=== PATIENT | female | born 1975 | race Caucasian/White ===

== ENCOUNTER 2016-05-04 18:12 | Observation (INO) ==
--- NOTE | 2016-05-04 19:49 | Emergency Department Note ---
Disposition Clinical Impression: Weakness, UTI (urinary tract infection), Multiple sclerosis exacerbation, Anemia Disposition: Admitted As Inpatient Condition: Good General Adult HPI - General Chief complaint: ED Urogenital-Female Stated complaint: UTI Time Seen by Provider: 05/04/16 19:47 Source: patient, family Limitations: physical limitation - History of Present Illness HPI Narrative: 40-year-old female with history of multiple sclerosis and chronic weakness with lower and upper extremity spasms on a baclofen pump reportsto the emergency department with concerns for UTI. The patient has to self catheterize. Her urine has been strong smelling. Per her , the patient gets generally weaker and has increasing spasms when she has a UTI. They report she is usually able to transfer from the bed to wheelchair but she is unable to do so now secondary to generalized weakness. There is no history of chest pain shortness of breath or cough. No leg swelling or pain no coughing of blood falls or injuries. No abdominal pain vomiting or diarrhea. There is no history of fever or flank pain. There is no history of confusion or dysarthria. The patient usually has reddened legs and this is unchanged. No unilateral leg swelling has been noted. The patient and family report she is so weak she will likely have to go to a skilled nursing for recovery. They do not think they can handle her at home based on her immobility and the patient's 's work and school schedule. Pain Scale: 0 - Related Data Home Medications Medication Instructions Recorded Confirmed BuPROPion [Wellbutrin] 75 mg PO DAILY 10/08/15 05/04/16 Dimethyl Fumarate [Tecfidera] 240 mg PO BID 10/08/15 05/04/16 Ibuprofen [Motrin] 800 mg PO Q8HR PRN 10/08/15 05/04/16 Sennosides [Senna] 17.2 mg PO DAILY PRN 10/08/15 05/04/16 Venlafaxine HCl [Effexor Xr] 225 mg PO DAILY 10/08/15 05/04/16 Cetirizine HCl [Zyrtec] 10 mg PO DAILY 10/10/15 05/04/16 Baclofen 05/04/16 05/04/16 Bethanechol Chloride [Urecholine] 25 mg PO TID 05/04/16 05/04/16 BuPROPion SR (12 HR) [Wellbutrin 100 mg PO BID 05/04/16 05/04/16 SR] Cranberry Conc/Ascorbic Acid 1 each PO DAILY 05/04/16 05/04/16 [Cranberry Concentrate Softgel] Docusate [Colace] 100 mg PO BID 05/04/16 05/04/16 Ergocalciferol (VITAMIN D2) 50,000 unit PO QWEEK 05/04/16 05/04/16 [Vitamin D2] Lactobacillus Acidophilus 1 mg PO DAILY 05/04/16 05/04/16 [Acidophilus Probiotic] Methenamine Hippurate 1 gm PO BIDWM 05/04/16 05/04/16 Oxymetazoline HCl [Afrin] 1 spray NS Q12H PRN 05/04/16 05/04/16 Pregabalin [Lyrica] 100 mg PO BID 05/04/16 05/04/16 Saline Nasal [place] [[place] Nasal 1 spray NS Q4H PRN 05/04/16 05/04/16 [place]] Tamsulosin [Flomax] 0.4 mg PO DAILY 05/04/16 05/04/16 Allergies Allergy/AdvReac Type Severity Reaction Status Date / Time Penicillins Allergy Hives Verified 05/04/16 18:20 Sulfa (Sulfonamide Allergy Hives Verified 05/04/16 18:20 Antibiotics) All systems ED: reviewed and negative except as stated. Past Medical History - Past Medical History Medical history: Reports: other (Multiple sclerosis with chronic debility on a baclofen pump, recurrent UTI) Surgical history: Reports: non-contributory Psychiatric history: Reports: no psych history - Social History Smoking Status: Current some day smoker Alcohol use: Reports: rarely Drug use: Reports: none Physical Exam - General Limitations: physical limitation General appearance: alert, in no apparent distress - Head Head exam: atraumatic, normocephalic, normal inspection - Eye Eye exam: Present: normal appearance, PERRL, EOMI - ENT ENT exam: normal exam, normal oropharynx, mucous membranes moist, TM's normal bilaterally, normal external ear exam - Neck Neck exam: Present: normal inspection, full ROM, trachea midline - Chest Chest inspection: Present: symmetric chest wall rise. Absent: tenderness - Respiratory Respiratory exam: Present: normal lung sounds bilaterally. Absent: respiratory distress - Cardiovascular Cardiovascular exam: Present: normal rhythm, tachycardia - Abdominal Exam Abdominal exam: Present: soft, Non-Tender, normal bowel sounds. Absent: tenderness, distention, guarding, rebound, rigidity, pulsatile mass - Extremities Exam Extremities exam: Present: normal inspection, full ROM, normal capillary refill , pedal edema, other (Mild erythema of the legs). Absent: tenderness, joint swelling, calf tenderness - Expanded Lower Extremity Exam Neurovascular/Tendon exam: Absent: motor deficit, sensory deficit, tendon deficit, extremity cold to touch, pallor - Back Exam Back exam: Absent: tenderness, CVA tenderness (R), CVA tenderness (L) - Neurological Exam Neurological exam: Present: alert, oriented X3, CN II-XII intact, motor sensory deficit (Bilateral ower extremity weakness with spasm, left upper extremity spasm, general good muscle strength in the upper extremities, spasm left upper extremity appreciated.) - Psychiatric Psychiatric exam: Present: normal affect, normal mood - Skin Skin exam: Present: warm, dry, intact, normal color. Absent: cyanosis, diaphoresis, pallor, mottled Course Vital Signs Temperature 97.4 F L 05/04/16 18:20 Pulse Rate 120 05/04/16 18:20 Respiratory Rate 16 05/04/16 18:20 Blood Pressure 107/66 05/04/16 18:20 O2 Sat by Pulse Oximetry 100 05/04/16 18:20 Temperature 97.4 F L 05/04/16 22:07 Pulse Rate 115 05/04/16 22:07 Respiratory Rate 16 05/04/16 22:07 Blood Pressure 105/61 05/04/16 22:07 O2 Sat by Pulse Oximetry 97 05/04/16 22:07 Oxygen Delivery Oxygen Delivery Room Air Medical Decision Making - [facility] Narrative Medical decision making narrative: The patient is tachycardic and has a UTI, IV fluid and Rocephin were given. Laboratory studies were ordered reveals a negative lactate, negative white count or shift, negative chem basic and liver function tests. The patient does demonstrate an element of anemia. The patient is usually able to transfer from a bed to too weak to transfer. The patient's reports that when she has urinary tract infections her neurologic status and general strength diminished. He reports he has seen her in the same condition and that she has previously had to be admitted to a skilled nursing for medical recovery. The patient and family members concur she is too weak to be cared for at home. Based on a modified Sirs/sepsis score the patient may meet criteria for sepsis, The patient has tachycardia, an element of hypotension, and a clear source for infection with apparent systemic effects. In the ED the patient became somewhat tired and sleepy, however she remained easily arousable, I do n suspect acute intracranial pathology. Her tachycardia did resolve significantly with 1 L of IV fluid and her heart rate went down to the 70's. Based on the patient's weakness and associated urinary tract infection, I thought it would be appropriate to admit the patient to the hospital. The patient will likely require nursing placement at least in the short-term. I reviewed the case with the hospitalist ZAKIYA as well as Dr. Resendiz. They have accepted the patient to their care. Further evaluation and managementregarding the patient's acute weakness as per the admitting team. - Lab Data Lab results reviewed: Yes I reviewed the patient's lab results. Result diagrams: 05/04/16 20:53 05/04/16 20:53 Lab Results 05/04/16 05/04/16 05/04/16 Range/Units 20:19 20:19 20:53 WBC 7.7 (4.3-11.1) K/mcL RBC 3.84 (3.82-4.97) M/mcL Hgb 10.8 L (11.5-15.4) g/dL Hct 34.1 L (35.3-44.9) % MCV 88.8 (83.0-100.0) fL MCH 28.1 (28.0-33.3) pg MCHC 31.7 (31.6-35.5) g/dL RDW 15.3 H (11.5-14.5) % Plt Count 235 (140-400) K/mcL MPV 10.8 (9.4-12.4) fL Immature Gran % 0.5 (0-4) % Seg Neutrophils % 69.3 % Lymphocytes % 19.4 % Monocytes % 7.4 % Eosinophils % 3.0 % Basophils % 0.4 % Neutrophils # 5.3 (1.6-8.9) K/mcL Lymphocytes # 1.5 (0.6-4.6) K/mcL Monocytes # 0.6 (0.0-1.3) K/mcL Eosinophils # 0.2 (0.0-0.6) K/mcL Basophils # 0.0 (0.0-0.2) K/mcL Sodium (136-145) mEq/L Potassium (3.5-4.5) mEq/L Chloride (98-109) mEq/L Carbon Dioxide (19-29) mEq/L BUN (7-20) mg/dL Creatinine (0.57-1.11) mg/dL Est GFR ( Amer) (> 60) Est GFR (Non-Af Amer) (> 60) BUN/Creatinine Ratio (6-26) Glucose (70-99) mg/dL Calculated Osmolality (280-300) Lactic Acid (0.5-2.2) mmol/L Calcium (8.6-10.8) mg/dL Total Bilirubin (0.2-1.2) mg/dL Direct Bilirubin (0.0-0.5) mg/dL Indirect Bilirubin (0.0-1.2) mg/dL AST (5-34) Units/L ALT (0-55) Units/L Alkaline Phosphatase (38-126) Units/L C-Reactive Protein (Less than 5) mg/L Serum Total Protein (6.0-8.3) g/dL Albumin (3.5-5.0) g/dL Globulin (2.4-3.5) g/dL Albumin/Globulin Ratio (1.1-2.2) Urine Color Yellow (Yellow) Urine Clarity Turbid A (Clear) Urine pH 6.5 (5.0-8.0) pH Units Ur Specific [place] 1.021 (1.010-1.025) Urine Protein 30 H (Neg-Trace) mg/dL Urine Glucose (UA) Normal (Normal) mg/dL Urine Ketones 15 H (Negative) mg/dL Urine Blood Moderate H (Negative) Urine Nitrite Negative (Negative) Urine Bilirubin Negative (Negative) Urine Urobilinogen Normal (Normal) mg/dL Ur Leukocyte Esterase Large H (Negative) Urine Microscopic RBC TNTC H (0-3) per hpf Urine Microscopic WBC TNTC H (0-3) per hpf Ur Squamous Epith Cells Many H (None-Few) per lpf Urine Bacteria Many H (None-Few) per hpf Hyaline Casts Moderate H (None-Few) per lpf Ur Culture Indicated? YES A (NO) Urine Test Negative (Negative) 05/04/16 05/04/16 05/04/16 Range/Units 20:53 20:53 20:53 WBC (4.3-11.1) K/mcL RBC (3.82-4.97) M/mcL Hgb (11.5-15.4) g/dL Hct (35.3-44.9) % MCV (83.0-100.0) fL MCH (28.0-33.3) pg MCHC (31.6-35.5) g/dL RDW (11.5-14.5) % Plt Count (140-400) K/mcL MPV (9.4-12.4) fL Immature Gran % (0-4) % Seg Neutrophils % % Lymphocytes % % Monocytes % % Eosinophils % % Basophils % % Neutrophils # (1.6-8.9) K/mcL Lymphocytes # (0.6-4.6) K/mcL Monocytes # (0.0-1.3) K/mcL Eosinophils # (0.0-0.6) K/mcL Basophils # (0.0-0.2) K/mcL Sodium 139 (136-145) mEq/L Potassium 3.5 (3.5-4.5) mEq/L Chloride 102 (98-109) mEq/L Carbon Dioxide 27 (19-29) mEq/L BUN 11 (7-20) mg/dL Creatinine 0.59 (0.57-1.11) mg/dL Est GFR ( Amer) > 60 (> 60) Est GFR (Non-Af Amer) > 60 (> 60) BUN/Creatinine Ratio 19 (6-26) Glucose 95 (70-99) mg/dL Calculated Osmolality 287 (280-300) Lactic Acid 0.6 (0.5-2.2) mmol/L Calcium 8.9 (8.6-10.8) mg/dL Total Bilirubin 0.3 (0.2-1.2) mg/dL Direct Bilirubin 0.1 (0.0-0.5) mg/dL Indirect Bilirubin 0.2 (0.0-1.2) mg/dL AST 18 (5-34) Units/L ALT 16 (0-55) Units/L Alkaline Phosphatase 66 (38-126) Units/L C-Reactive Protein 0 (Less than 5) mg/L Serum Total Protein 6.7 (6.0-8.3) g/dL Albumin 3.5 (3.5-5.0) g/dL Globulin 3.2 (2.4-3.5) g/dL Albumin/Globulin Ratio 1.1 (1.1-2.2) Urine Color (Yellow) Urine Clarity (Clear) Urine pH (5.0-8.0) pH Units Ur Specific [place] (1.010-1.025) Urine Protein (Neg-Trace) mg/dL Urine Glucose (UA) (Normal) mg/dL Urine Ketones (Negative) mg/dL Urine Blood (Negative) Urine Nitrite (Negative) Urine Bilirubin (Negative) Urine Urobilinogen (Normal) mg/dL Ur Leukocyte Esterase (Negative) Urine Microscopic RBC (0-3) per hpf Urine Microscopic WBC (0-3) per hpf Ur Squamous Epith Cells (None-Few) per lpf Urine Bacteria (None-Few) per hpf Hyaline Casts (None-Few) per lpf Ur Culture Indicated? (NO) Urine Test (Negative)
[2016-05-04 20:28] LABS: Bilirubin,Urine Negative (Negative); Blood,Urine Moderate (Negative); Clarity,Urine Turbid (Clear); Color,Urine Yellow (Yellow); Glucose,Urine (UA) Normal (Normal); Ketones,Urine 15 mg/dL (Negative); Leukocyte Esterase,Urine Large (Negative); Nitrite,Urine Negative (Negative); PH,Urine 6.5 pH Units (5.0-8.0); Protein,Urine 30 mg/dL (Neg-Trace); Specific Gravity,Urine 1.021 (1.010-1.025); Urobilinogen,Urine Normal (Normal)
[2016-05-04 20:31] LABS: Bacteria,Urine Many per hpf (None-Few); Hyaline Casts,Urine Moderate per lpf (None-Few); RBC,Urine TNTC per hpf (0-3); Squamous Epithelial Cell,Urine Many per lpf (None-Few); WBC,Urine TNTC per hpf (0-3)
[2016-05-04] MEDS ORDERED: 0.9 % Sodium Chloride 1,000 ML IVC ONE (20:37)
[2016-05-04 21:08] LABS: Basophils % 0.4 %; Eosinophils # 0.2 K/mcL (0.0-0.6); Hematocrit 34.1 % (35.3-44.9); Hemoglobin 10.8 g/dL (11.5-15.4); Immature Granulocytes % 0.5 % (0-4); Lymphocytes # 1.5 K/mcL (0.6-4.6); Lymphocytes % 19.4 %; Mean Corpuscular HGB Conc 31.7 g/dL (31.6-35.5); Mean Corpuscular Hemoglobin 28.1 pg (28.0-33.3); Mean Corpuscular Volume 88.8 fL (83.0-100.0); Mean Platelet Volume 10.8 fL (9.4-12.4); Monocytes # 0.6 K/mcL (0.0-1.3); Monocytes % 7.4 %; Neutrophils # 5.3 K/mcL (1.6-8.9); Platelet Count 235 K/mcL (140-400); Red Blood Count 3.84 M/mcL (3.82-4.97); Red Cell Distribution Width 15.3 % (11.5-14.5); Segmented Neutrophils % 69.3 %
[2016-05-04 21:22] LABS: Alanine Aminotransferase 16 Units/L (0-55); Albumin 3.5 g/dL (3.5-5.0); Albumin/Globulin Ratio 1.1 (1.1-2.2); Alkaline Phosphatase 66 Units/L (38-126); Aspartate Amino Transferase 18 Units/L (5-34); BUN/Creatinine Ratio 19 (6-26); Bilirubin,Direct 0.1 mg/dL (0.0-0.5); Bilirubin,Indirect 0.2 mg/dL (0.0-1.2); Bilirubin,Total 0.3 mg/dL (0.2-1.2); Blood Urea Nitrogen 11 mg/dL (7-20); Calcium 8.9 mg/dL (8.6-10.8); Carbon Dioxide 27 mEq/L (19-29); Chloride 102 mEq/L (98-109); Globulin 3.2 g/dL (2.4-3.5); Glucose 95 mg/dL (70-99); Osmolality,Calculated 287 (280-300); Potassium 3.5 mEq/L (3.5-4.5); Sodium 139 mEq/L (136-145); Total Protein 6.7 g/dL (6.0-8.3); eGFR For African Americans > 60 (> 60); eGFR For Non-African Americans > 60 (> 60)
[2016-05-05] MEDS ORDERED: Naloxone 0.4 MG/ML INJ IVP PRN (03:27)
[2016-05-05] MEDS ORDERED: Oxymetazoline Nasal SPRAY BOTTLE NS PRN (03:31)
--- NOTE | 2016-05-05 03:38 | Internal Med History&Physical ---
Date of Encounter: 05/05/16 Time of Encounter: 03:00 Assessment and Plan (1) UTI (urinary tract infection) Current visit: Yes Status: Acute Pt has neurogenic bladder and uses intermittent self-catheterization. Urinalysis is abnormal. Urine cultures pending. Empirically treat with ceftriaxone. (2) Multiple sclerosis exacerbation Current visit: Yes Status: Acute Possibly related to UTI. Will consider Neurology consult for further advice. PT / social service consult (3) Back muscle spasm Current visit: Yes Status: Acute Continue with baclofen pump (4) Vaginal candidiasis Current visit: Yes Status: Acute Treat with fluconazole (5) DVT prophylaxis Current visit: Yes Status: Acute subcutaneous heparin Internal Medicine - H&P: HPI Chief complaint: spasms, generalized weakness Plans for Post Hospital Care: Transfer Nursing Home Facility History of present illness: Ms. Suresh is a 40 year old female with history of multiple sclerosis and chronic weakness of lower extremities and spasms on a baclofen pump. Pt needs intermittent catheterization, by her . Pt is somnolent and is not able to give significant details. Her is not at the bedside. Per the ER notes , her reported that the patient gets generally weaker and has increasing spasms when she has a UTI. At baseline, she can usually be able to transfer from the bed to wheelchair but she is unable to do so now, secondary to generalized weakness. Her urine has strong smell. She reports that her legs are weaker for the last week. She also reports left wrist drop since yesterday. She denies abdominal pain, fever, chills, nausea, vomiting, shortness of breath. Urinalysis in the emergency department was abnormal with leukocyte esterase and TNTC WBC. She was given ceftriaxone and is admitted to the hospitalist service for further management. Recent urine culture from November 2015 showed Escherichia coli, which was resistant to ciprofloxacin. Past Med Surg Social Fam HX - Past Medical History Medical history: other (Multiple sclerosis with chronic debility on a baclofen pump, recurrent UTI) Psychiatric history: no psych history - Past Surgical History Surgical History: non-contributory - Social History Smoking Status: Current some day smoker Alcohol use: rarely Drug use: none - Family History Mother Adopted: No Internal Medicine - H&P: Meds BuPROPion [Wellbutrin] 75 mg PO DAILY 10/08/15 [History] Dimethyl Fumarate [Tecfidera] 240 mg PO BID 10/08/15 [History] Ibuprofen [Motrin] 800 mg PO Q8HR PRN 10/08/15 [History] Sennosides [Senna] 17.2 mg PO DAILY PRN 10/08/15 [History] Venlafaxine HCl [Effexor Xr] 225 mg PO DAILY 10/08/15 [History] Cetirizine HCl [Zyrtec] 10 mg PO DAILY 10/10/15 [History] Baclofen 05/04/16 [History] Bethanechol Chloride [Urecholine] 25 mg PO TID 05/04/16 [History] BuPROPion SR (12 HR) [Wellbutrin SR] 100 mg PO BID 05/04/16 [History] Cranberry Conc/Ascorbic Acid [Cranberry Concentrate Softgel] 1 each PO DAILY [History] Docusate [Colace] 100 mg PO BID 05/04/16 [History] Ergocalciferol (VITAMIN D2) [Vitamin D2] 50,000 unit PO QWEEK 05/04/16 [History] Lactobacillus Acidophilus [Acidophilus Probiotic] 1 mg PO DAILY 05/04/16 [ History] Methenamine Hippurate 1 gm PO BIDWM 05/04/16 [History] Oxymetazoline HCl [Afrin] 1 spray NS Q12H PRN 05/04/16 [History] Pregabalin [Lyrica] 100 mg PO BID 05/04/16 [History] Saline Nasal [place] [[place] Nasal [place]] 1 spray NS Q4H PRN 05/04/16 [History] Tamsulosin [Flomax] 0.4 mg PO DAILY 05/04/16 [History] Allergies Penicillins Allergy (Verified 05/04/16 18:20) Hives Sulfa (Sulfonamide Antibiotics) Allergy (Verified 05/04/16 18:20) Hives All Systems PM: A 10-system review of systems was performed and is negative for pertinent findings except as documented above in the HPI. - Constitutional Vitals: Temp Pulse Resp BP Pulse Ox 97.4 F L 115 16 105/61 97 05/04/16 22:07 05/04/16 22:07 05/04/16 22:07 05/04/16 22:07 05/04/16 22:07 Exam: General: Not in acute distress at the time of my evaluation. Somnulent. HEENT: Oral mucosa is moist. No conjunctival palor or scleral icterus. Right sided ptosis Neck: No obvious neck swellings Lungs: Clear to auscultation Cardiac: Regular rate and rhythm. No significant murmurs Abdomen: Soft, non tender. Bowel sounds present Neurological: Somnulent, arousable. She is able to wiggle the toes but not able to move the lower extremities against gravity. Left wrist drop present. Psych: Not aggressive or agitated Extremities: B/L leg edema, right more than the left; there is erythema of the lower legs, but not suggestive of cellulitis. Skin: No generalized rash Internal Med - H&P Results - Labs CBC & Chem 7: 05/04/16 20:53 05/04/16 20:53
[2016-05-05] MEDS ORDERED: Fluconazole 100 MG TABLET PO ONE ×2 (03:51→04:45)
[2016-05-05] MEDS: BuPROPion SR (12 HR) 100 MG TABLET PO SCH ×2 (09:53→20:39)
[2016-05-05] MEDS: Venlafaxine XR (24 HR) 75 MG CAP.ER.24H PO SCH (09:54)
[2016-05-05] MEDS: Lactobacillus 1 EACH CAP.SPRINK PO SCH ×2 (09:54→20:40)
[2016-05-05] MEDS: *HR* Heparin 5,000 UNIT/ML VIAL SQ SCH ×3 (09:55→22:55)
--- NOTE | 2016-05-05 10:40 | Neurology - Consult Note ---
<Ezra Calabrese - Last Filed: 05/05/16 13:53> Date of Encounter: 05/05/16 Time of Encounter: 10:37 Assessment and Plan (1) Weakness Current Visit: Yes Status: Acute Acute on chronic weakness likely related to her recurrent UTI vs. exacerbation of MS She had 2 similar episodes in the past year and her symptoms resolved with treatment of UTI Will rule out exacerbation of MS and evaluate for any new lesions with MRI brain with and w/o contrast Consider EMG as outpatient in 2 weeks PT/OT consulted as she will likely benefit from rehab upon discharge (2) Relapsing remitting multiple sclerosis Current Visit: No Status: Chronic Currently managed at [facility] Continue her longterm treatment with Baclofen pump and Tecfidera Last brain MRI in November did not reveal any new lesions; will order new MRI as above (3) UTI (urinary tract infection) Current Visit: Yes Status: Acute She has recurrent UTIs as this likely her 3rd occurrence in the past 7 months Previous cultures were positive for fluoroquinolone resisitant E. Coli and she is currently on IV Rocephin per primary team Qualifiers: Urinary tract infection type: site unspecified Hematuria presence: without hematuria Qualified Code(s): N39.0 - Urinary tract infection, site not specified History of Present Illness Chief complaint: generalized weakness HPI: Ms. Suresh is a 40 year old female who presents to hospital with generalized weakness and muscle spasms. She states her symptoms started roughly 3-4 days ago and she has required the assistance of her to get around. Patient has a history of MS diagnosed roughly 20 years ago and is currently on a Baclofen pump and Tecfidera. Her MS is being managed in [place] at [facility]. She states that her baseline she is able to transport herself from her wheelchair to her bed and also able to dress herself. However in the past few days she has required the assistance of her to do all the above. Patient claims that she has worsening symptoms of her MS whenever she gets a urinary tract infection. She states that her urine has been smelling bad over the past several days and feels like her previous urinary tract infection episodes. Patient also complains of left wrist drop which is new for her over the past couple days. She denies any acute changes in medication recently or awkward sleeping positions. Patient also denies any recent illnesses, fever, nausea, vomiting, chest pain, shortness of breath. Past Med Surg Social Fam HX - Past Medical History Medical history: other (Multiple sclerosis with chronic debility on a baclofen pump, recurrent UTI) Psychiatric history: no psych history - Past Surgical History Surgical History: non-contributory - Social History Smoking Status: Current some day smoker Alcohol use: rarely Drug use: none - Family History Mother Adopted: No Medications and Allergies BuPROPion [Wellbutrin] 75 mg PO DAILY 10/08/15 [History] Dimethyl Fumarate [Tecfidera] 240 mg PO BID 10/08/15 [History] Ibuprofen [Motrin] 800 mg PO Q8HR PRN 10/08/15 [History] Sennosides [Senna] 17.2 mg PO DAILY PRN 10/08/15 [History] Venlafaxine HCl [Effexor Xr] 225 mg PO DAILY 10/08/15 [History] Cetirizine HCl [Zyrtec] 10 mg PO DAILY 10/10/15 [History] Baclofen 05/04/16 [History] Bethanechol Chloride [Urecholine] 25 mg PO TID 05/04/16 [History] BuPROPion SR (12 HR) [Wellbutrin SR] 100 mg PO BID 05/04/16 [History] Cranberry Conc/Ascorbic Acid [Cranberry Concentrate Softgel] 1 each PO DAILY [History] Docusate [Colace] 100 mg PO BID 05/04/16 [History] Ergocalciferol (VITAMIN D2) [Vitamin D2] 50,000 unit PO QWEEK 05/04/16 [History] Lactobacillus Acidophilus [Acidophilus Probiotic] 1 mg PO DAILY 05/04/16 [ History] Methenamine Hippurate 1 gm PO BIDWM 05/04/16 [History] Oxymetazoline HCl [Afrin] 1 spray NS Q12H PRN 05/04/16 [History] Pregabalin [Lyrica] 100 mg PO BID 05/04/16 [History] Saline Nasal [place] [[place] Nasal [place]] 1 spray NS Q4H PRN 05/04/16 [History] Tamsulosin [Flomax] 0.4 mg PO DAILY 05/04/16 [History] Mv-Mn/FA/Vit K/Lycop/Lut/Coq10 [Daily Multivitamin Capsule] 1 each PO DAILY [History] Na Phos,M-B/Na Phos,Di-Ba [Fleet Enema Extra] 230 ml RC BID PRN 05/05/16 [ History] Allergies Penicillins Allergy (Verified 05/05/16 10:26) Hives Sulfa (Sulfonamide Antibiotics) Allergy (Verified 05/05/16 10:26) Hives All Systems: A 10-system review of systems was performed and is negative for pertinent findings except as documented above in the HPI. - Constitutional Constitutional ROS IM: weakness, no fever(s), no frequent falls, no headache(s) - Nose, Mouth, Throat Nose, mouth and throat: no abnormal hearing, no facial pain, no headache(s) - Cardiovascular Cardiovascular ROS IM: edema, leg edema, no chest pain, no irregular heart rhythm - Respiratory Respiratory IM: no cough, no dyspnea, no hemoptysis - Gastrointestinal Gastrointestinal: no abdominal pain, no hematochezia, no melena, no nausea - Genitourinary Genitourinary ROS: other (change in smell of urine), no dysuria - Musculoskeletal Musculoskeletal ROS IM: as per HPI, muscle weakness, no arthralgias - Integumentary Integumentary IM: erythema, swelling, no lesions, no skin ulcer - Neurological Neurological ROS: abnormal gait, no abnormal speech, no convulsions, no focal weakness, no headache(s), no paresthesias, no sensory deficit, no syncope, no tingling Physical Examination - Vital Signs Vital Signs: Initial Vital Signs Temp Pulse Resp BP Pulse Ox 97.4 F L 120 16 107/66 100 05/04/16 18:20 05/04/16 18:20 05/04/16 18:20 05/04/16 18:20 05/04/16 18:20 - Constitutional General appearance: comfortable, chronically ill - Neurologic Motor examination - right side: 4/5: biceps, triceps, wrist flexion, wrist extension, rehanger, hip flexors, 5/5: deltoids Motor examination - left side: 3/5: biceps, triceps, wrist flexion, hip flexors , rehanger, quadriceps, 5/5: deltoids, wrist extension Detailed sensory examination: light touch, pain Mental Status Examination: awake, alert, oriented to person, oriented to place, oriented to time, follows commands appropriately, answers questions appropriately, no agnosia, no aphasia, no aproxia Cranial nerve examination: PERRL, EOMI, visual garcia intact, corneal reflexes brisk symmetrically, sensory to face intact, mastication intact, no facial asymmetry is present, no dysarthria, hearing is intact symmetrically, soft palate elevates bilaterally upon phonation, gag reflex intact, flexes SCM and trapezius muscles symmetrically with full power, tongue protrudes midline, no atrophy or facial fasiculations present Cerebellar examination: no dysmetria, performs finger to nose and heel to taylor symmetrically without ataxia, no gait ataxia, no truncal ataxia, no difficulty with rapid alternating movements (unable to perform on left arm) Results - Laboratory Findings CBC and BMP: 05/04/16 20:53 05/04/16 20:53 Abnormal lab findings: Abnormal lab results Hgb 10.8 g/dL (11.5-15.4) L 05/04/16 20:53 Hct 34.1 % (35.3-44.9) L 05/04/16 20:53 RDW 15.3 % (11.5-14.5) H 05/04/16 20:53 Urine Clarity Turbid (Clear) A 05/04/16 20:19 Urine Protein 30 mg/dL (Neg-Trace) H 05/04/16 20:19 Urine Ketones 15 mg/dL (Negative) H 05/04/16 20:19 Urine Blood Moderate (Negative) H 05/04/16 20:19 Ur Leukocyte Esterase Large (Negative) H 05/04/16 20:19 Urine Microscopic RBC TNTC per hpf (0-3) H 05/04/16 20:19 Urine Microscopic WBC TNTC per hpf (0-3) H 05/04/16 20:19 Ur Squamous Epith Cells Many per lpf (None-Few) H 05/04/16 20:19 Urine Bacteria Many per hpf (None-Few) H 05/04/16 20:19 Hyaline Casts Moderate per lpf (None-Few) H 05/04/16 20:19 Ur Culture Indicated? YES (NO) A 05/04/16 20:19 Consult Discharge Plan - Plan Referrals: Marcela Mejia MD [Primary Care Provider] - 05/13/16 2:30 pm <Ethel Tapia I - Last Filed: 05/06/16 14:30> Assessment and Plan (1) Weakness Current Visit: Yes Status: Acute Pt seen and agree with Dr Calabrese assessment and plan. 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 Could be related to sleeping position and the patient with MS the peripheral nerves are weak and quite susceptible to compressive neuropathies. She is also complaining of generalized weakness which could be related to her UTI and overall sickness that could make the symptoms of MS worse She does have advanced multiple sclerosis and is been quite disabled from it, she has been maintained on injection suggested to continue on it As far as question of acute MS exacerbation recommended getting an MRI of the brain with and without contrast particularly to look for any acute lesion or any active enhancement, and if that is negative perhaps it is only due to her infection and generalized fatigue and weakness and it is likely pseudo- exacerbation and and not a true exacerbation of MS. We will follow the patient with you after MRI of the brain in the meantime she would continue in physical therapy she may benefit from srinivas Tapia MD History of Present Illness HPI: Ms. Suresh is a 40 year old female All Systems: A 10-system review of systems was performed and is negative for pertinent findings except as documented above in the HPI. Physical Examination - Vital Signs Vital Signs: Initial Vital Signs Temp Pulse Resp BP Pulse Ox 97.4 F L 120 16 107/66 100 05/04/16 18:20 05/04/16 18:20 05/04/16 18:20 05/04/16 18:20 05/04/16 18:20 Results - Laboratory Findings CBC and BMP: 05/04/16 20:53 05/04/16 20:53 Abnormal lab findings: Abnormal lab results Hgb 10.8 g/dL (11.5-15.4) L 05/04/16 20:53 Hct 34.1 % (35.3-44.9) L 05/04/16 20:53 RDW 15.3 % (11.5-14.5) H 05/04/16 20:53 Urine Clarity Turbid (Clear) A 05/04/16 20:19 Urine Protein 30 mg/dL (Neg-Trace) H 05/04/16 20:19 Urine Ketones 15 mg/dL (Negative) H 03/13/17 20:19 Urine Blood Moderate (Negative) H 05/04/16 20:19 Ur Leukocyte Esterase Large (Negative) H 05/04/16 20:19 Urine Microscopic RBC TNTC per hpf (0-3) H 05/04/16 20:19 Urine Microscopic WBC TNTC per hpf (0-3) H 05/04/16 20:19 Ur Squamous Epith Cells Many per lpf (None-Few) H 05/04/16 20:19 Urine Bacteria Many per hpf (None-Few) H 05/04/16 20:19 Hyaline Casts Moderate per lpf (None-Few) H 05/04/16 20:19 Ur Culture Indicated? YES (NO) A 05/04/16 20:19
[2016-05-05] MEDS ORDERED: NA PHOS M B RC PRN (11:18)
[2016-05-05] MEDS ORDERED: NA PHOS DI BA RC PRN (11:18)
[2016-05-05] MEDS ORDERED: Sennosides 8.6 MG TABLET PO PRN (11:18)
[2016-05-05] MEDS ORDERED: Lactobacillus 1 EACH CAP.SPRINK PO SCH (11:30)
[2016-05-05] MEDS: Pregabalin 50 MG CAPSULE PO SCH ×2 (12:12→20:39)
[2016-05-05] MEDS: Loratadine 10 MG TABLET PO SCH (14:18)
[2016-05-05] MEDS: CRANBERRY PO SCH (14:18)
[2016-05-05] MEDS: ASCORBIC ACID PO SCH (14:18)
[2016-05-05] MEDS: (Dimethyl Fumarate [Tecfidera] 240 MG) PO SCH ×2 (14:18→20:40)
[2016-05-05] MEDS: METHENAMINE HIPPURATE 1 GM PO SCH ×2 (14:19→17:57)
--- NOTE | 2016-05-05 14:38 | Event Note ---
Date of Encounter: 05/05/16 Time of Encounter: 14:38 40-year-old female with history of multiple sclerosis, admitted with worsening weakness in upper and lower extremities. Patient seen and examined at bedside. Reports weakness in upper and lower extremities, has difficulty with transfers, which is new for her. Also reports constipation and requests for Fleet Enema. Awake, alert and oriented 3. Chest-S1, S2 heard. Lungs are clear to auscultation Extremities-motor power 3-4/5 B/L upper and lower extremities Reviewed labs. Urinalysis suggestive of UTI, preliminary urine culture grows gram-negative rods. UTI-recurrent. Previous urine cultures grew fluoroquinolone resistant Escherichia coli. Preliminary urine culture grows gram negative rods; f/up final report and continue IV Rocephin for now; Upper extremity weakness-could be related to underlying UTI or new flareup of multiple sclerosis. Neurology consult appreciated. Follow-up MRI brain to look for new lesions. PT/OT consults; Relapsing remitting MS- continue home meds and supportive care;
[2016-05-06] MEDS: *HR* Heparin 5,000 UNIT/ML VIAL SQ SCH ×2 (08:35→15:55)
[2016-05-06] MEDS: Venlafaxine XR (24 HR) 75 MG CAP.ER.24H PO SCH (08:35)
[2016-05-06] MEDS: Lactobacillus 1 EACH CAP.SPRINK PO SCH ×2 (08:36→20:54)
[2016-05-06] MEDS: BuPROPion SR (12 HR) 100 MG TABLET PO SCH ×2 (08:36→20:53)
[2016-05-06] MEDS: Pregabalin 50 MG CAPSULE PO SCH ×2 (08:36→20:53)
[2016-05-06] MEDS: Loratadine 10 MG TABLET PO SCH (08:36)
[2016-05-06] MEDS: METHENAMINE HIPPURATE 1 GM PO SCH ×2 (08:38→15:56)
[2016-05-06] MEDS: CRANBERRY PO SCH (08:39)
[2016-05-06] MEDS: ASCORBIC ACID PO SCH (08:39)
[2016-05-06] MEDS: (Dimethyl Fumarate [Tecfidera] 240 MG) PO SCH ×2 (08:39→20:54)
--- NOTE | 2016-05-06 10:28 | Neurology Progress Note ---
<Ezra Calabrese - Last Filed: 05/06/16 11:39> Date of Encounter: 05/06/16 Time of Encounter: 10:25 Assessment and Plan (1) Weakness Current Visit: Yes Status: Acute Acute on chronic weakness likely related to her recurrent UTI in setting of MS She had 2 similar episodes in the past year and her symptoms resolved with treatment of UTI MRI brain with and w/o contrast did not show any new lesions, so she may have pseudoexacerbation of MS Consider EMG as outpatient in 2 weeks to evaluate for left wrist drop PT/OT/SS consulted as she will likely benefit from rehab upon discharge and is requesting [facility] (2) Relapsing remitting multiple sclerosis Current Visit: No Status: Chronic Currently managed at [place] at [facility] 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 Coli and she is currently on IV Rocephin per primary team Preliminary urine cx shows GNR Qualifiers: Urinary tract infection type: site unspecified Hematuria presence: without hematuria Qualified Code(s): N39.0 - Urinary tract infection, site not specified Subjective Principal diagnosis: weakness Interval history: Pt seen and examined. She is comfortable sitting upright in chair. She states she has no improvement in her weakness including her left wrist. She denies any chest pain, shortness of breath, but still has nausea. She appears anxious to go back to [facility] and wishes for [facility]. Objective - Constitutional Vitals: Temp Pulse Resp BP Pulse Ox 98.9 F 99 16 91/57 96 05/06/16 07:41 05/06/16 07:41 05/06/16 07:41 05/06/16 07:41 05/06/16 07:41 General appearance: Present: cooperative, pleasant, no acute distress, answers questions appropriately - Head Head exam: Present: atraumatic, normocephalic - Eye Eye exam: Present: EOMI, PERRL, conjuntiva pink, sclera anicteric - Extremities Exam Extremities exam: Present: pedal edema, warm, radial pulses palpable and symetrical. Absent: calf tenderness, cyanotic - Neurological Exam Sensorimotor examination: Present: intact Sensation intact: Present: light touch, pain Mental Status Examination: Present: awake, alert, oriented to person, oriented to place, oriented to time, follows commands appropriately, answers questions appropriately, no agnosia, no aphasia, no aproxia Cranial nerve examination: Present: PERRL, EOMI, visual garcia intact, corneal reflexes brisk symmetrically, sensory to face intact, mastication intact, no facial asymmetry is present, no dysarthria, hearing is intact symmetrically, soft palate elevates bilaterally upon phonation, gag reflex intact, flexes SCM and trapezius muscles symmetrically with full power, tongue protrudes midline, no atrophy or facial fasiculations present Cerebellar examination: Present: no dysmetria, performs finger to nose and heel to taylor symmetrically without ataxia, no gait ataxia, no truncal ataxia, no difficulty with rapid alternating movements (unable to perform on left arm) Results - Laboratory Findings CBC and BMP: 05/04/16 20:53 05/04/16 20:53 Abnormal lab findings: Abnormal lab results Hgb 10.8 g/dL (11.5-15.4) L 05/04/16 20:53 Hct 34.1 % (35.3-44.9) L 05/04/16 20:53 RDW 15.3 % (11.5-14.5) H 05/04/16 20:53 Urine Clarity Turbid (Clear) A 05/04/16 20:19 Urine Protein 30 mg/dL (Neg-Trace) H 05/04/16 20:19 Urine Ketones 15 mg/dL (Negative) H 05/04/16 20:19 Urine Blood Moderate (Negative) H 05/04/16 20:19 Ur Leukocyte Esterase Large (Negative) H 05/04/16 20:19 Urine Microscopic RBC TNTC per hpf (0-3) H 05/04/16 20:19 Urine Microscopic WBC TNTC per hpf (0-3) H 05/04/16 20:19 Ur Squamous Epith Cells Many per lpf (None-Few) H 05/04/16 20:19 Urine Bacteria Many per hpf (None-Few) H 05/04/16 20:19 Hyaline Casts Moderate per lpf (None-Few) H 05/04/16 20:19 Ur Culture Indicated? YES (NO) A 05/04/16 20:19 Consult Discharge Plan - Plan Referrals: Marcela Mejia MD [Primary Care Provider] - 05/13/16 2:30 pm <Ethel Tapia I - Last Filed: 05/06/16 14:34> Assessment and Plan (1) Weakness Current Visit: Yes Status: Acute MRI of the brain did not show any evidence of active lesion. This shows a lot of white matter changes quite typical for MS As there is no sign of any active lesions and no clinical symptoms of acute exacerbation do not think she will require any other treatment she would benefit from continued physical therapy rehabilitation as well as treatment for underlying UTI She will follow up with her neurologist at [facility] Ethel Tapia MD (2) Neuropathy of left radial nerve Current Visit: Yes Status: Acute Patient symptoms of left upper extremity weakness likely related to underlying acute left radial neuropathy for which she has been getting physical therapy and also would benefit from a brace. She will need an EMG nerve conduction studies and an outpatient and 2-3 weeks if she did not improve. Objective - Constitutional Vitals: Temp Pulse Resp BP Pulse Ox 98.3 F 110 15 98/65 99 05/06/16 11:21 05/06/16 11:21 05/06/16 11:21 05/06/16 11:21 05/06/16 11:21 Results - Laboratory Findings CBC and BMP: 05/04/16 20:53 05/04/16 20:53 Abnormal lab findings: Abnormal lab results Hgb 10.8 g/dL (11.5-15.4) L 05/04/16 20:53 Hct 34.1 % (35.3-44.9) L 05/04/16 20:53 RDW 15.3 % (11.5-14.5) H 05/04/16 20:53 Urine Clarity Turbid (Clear) A 05/04/16 20:19 Urine Protein 30 mg/dL (Neg-Trace) H 05/04/16 20:19 Urine Ketones 15 mg/dL (Negative) H 05/04/16 20:19 Urine Blood Moderate (Negative) H 05/04/16 20:19 Ur Leukocyte Esterase Large (Negative) H 05/04/16 20:19 Urine Microscopic RBC TNTC per hpf (0-3) H 05/04/16 20:19 Urine Microscopic WBC TNTC per hpf (0-3) H 05/04/16 20:19 Ur Squamous Epith Cells Many per lpf (None-Few) H 05/04/16 20:19 Urine Bacteria Many per hpf (None-Few) H 05/04/16 20:19 Hyaline Casts Moderate per lpf (None-Few) H 05/04/16 20:19 Ur Culture Indicated? YES (NO) A 05/04/16 20:19
--- NOTE | 2016-05-06 14:41 | Venous Imaging Report ---
LE Venous Duplex Patient Name:Mayra Suresh Order Number:[id number] Procedure Date:05/05/2016 Date:1975Age:40 yrs Gender:Female Location:[facility] Room #: 3B41 [employer] Medic:Helene Luevano RDCS Referring MD:Raul Pedro MD hot box spotter:Marcela Mejia MD Reading MD:Pedro Scruggs MD Primary Indications:To exclude DVT Secondary Indications: Impressions: Bilateral lower extremity: normal superficial and deep exam. Recommendations: Preliminary given to Pt [facility] Barrientos. Findings Venous Duplex Results: Right: Venous imaging of the lower extremity reveals full patency and normal vessel compressibility of the right distal iliac, right common femoral, right superficial femoral, right popliteal, right posterior tibial, right peroneal, right great saphenous and right lesser saphenous. Doppler signals in the evaluated veins were normal. Left: Venous imaging of the lower extremity reveals full patency and normal vessel compressibility of the left distal iliac, left common femoral, left superficial femoral, left popliteal, left posterior tibial, left peroneal, left great saphenous and left lesser saphenous. Doppler signals in the evaluated veins were normal. Prior Study: No change compared to prior study dated: 06/18/2014. Lower Extremity Venous Duplex Side Vein Compress Spontaneous Flow Augment Diameter (cm) Depth (cm) Right Distal Iliac Normal Yes Phasic Yes Right Common Femoral Normal Yes Phasic Yes Right Superficial Femoral Normal Yes Phasic Yes Right Popliteal Normal Yes Phasic Yes Right Posterior Tibial Normal Yes Phasic Yes Right Peroneal Normal Yes Phasic Yes Right Great Saphenous Normal Yes Phasic Yes Right Lesser Saphenous Normal Yes Phasic Yes Left Distal Iliac Normal Yes Phasic Yes Left Common Femoral Normal Yes Phasic Yes Left Superficial Femoral Normal Yes Phasic Yes Left Popliteal Normal Yes Phasic Yes Left Posterior Tibial Normal Yes Phasic Yes Left Peroneal Normal Yes Phasic Yes Left Great Saphenous Normal Yes Phasic Yes Left Lesser Saphenous Normal Yes Phasic Yes Updated by Pedro Scruggs MD on 05/06/2016 2:35:51 PM electronically signed on 05/06/2016 2:36:02 PM with status of Final
--- NOTE | 2016-05-06 15:03 | Internal Med Progress Note ---
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 Assessment and plan: continue PT/OT; Neurology recommends EMG studies in left hand as an outpatient; (3) UTI (urinary tract infection) Current Visit: Yes Status: Acute Assessment and plan: Recurrent UTIs; preliminary urine culture grows gram negative rods; f/up urine culture ad continue IV Rocephin; Qualifiers: Urinary tract infection type: site unspecified Hematuria presence: without hematuria Qualified Code(s): N39.0 - Urinary tract infection, site not specified (4) Vaginal candidiasis Current Visit: Yes Status: Suspected Assessment and plan: received a dose of IV Diflucan at admission; (5) Relapsing remitting multiple sclerosis Current Visit: Yes Status: Chronic Assessment and plan: continue supportive care and home meds; PT/OT; daily laxatives and enemas; intermittent self-catheterization; - Subjective Interval history: Feels better; has persistent weakness in left arm and hand with wrist drop; able to work with PT; no vomiting; reports BMs yesterday after enema; - Constitutional Vitals: Temp Pulse Resp BP Pulse Ox 98.3 F 110 15 98/65 99 05/06/16 11:21 05/06/16 11:21 05/06/16 11:21 05/06/16 11:21 05/06/16 11:21 General appearance: Present: A&O X 3, answers questions appropriately - Respiratory Respiratory exam: Present: CTAB. Absent: accessory muscle use, rales, rhonchi, wheezes - Cardiovascular Cardiovascular exam: Present: RRR, +S1, +S2. Absent: diastolic murmur, gallop, rubs, systolic murmur - GI/Abdominal GI/Abdominal exam: Present: normal bowel sounds, soft, no peritoneal signs. Absent: distended, tenderness Internal Medicine: Result - Labs CBC & Chem 7: 05/04/16 20:53 05/04/16 20:53 - Impressions Impressions Brain MRI 05/05/16 13:49 IMPRESSION: 1. Motion degrades images limiting evaluation. 2. Multiple T2 FLAIR hyperintense lesions again seen in the supratentorial and infratentorial compartments compatible the clinical diagnosis of multiple sclerosis. No new lesion identified. No associated contrast enhancement or restricted diffusion. 3. No acute intracranial abnormality. No acute infarct. D/ / Hieu Grimes MD / Hieu Grimes MD Interpreting Provider: Hieu Grimes MD Consult Discharge Plan - Plan Referrals: Marcela Mejia MD [Primary Care Provider] - 05/13/16 2:30 pm
[2016-05-06] MEDS: 0.9 % Sodium Chloride 1,000 ML IVC SCH (15:56)
[2016-05-06] MEDS: Acetaminophen 325 MG TABLET PO PRN (22:08)
[2016-05-07] MEDS: *HR* Heparin 5,000 UNIT/ML VIAL SQ SCH ×4 (00:26→23:46)
[2016-05-07] MEDS: 0.9 % Sodium Chloride 1,000 ML IVC SCH (04:22)
[2016-05-07] MEDS: Venlafaxine XR (24 HR) 75 MG CAP.ER.24H PO SCH (08:42)
[2016-05-07] MEDS: Lactobacillus 1 EACH CAP.SPRINK PO SCH ×2 (08:43→21:22)
[2016-05-07] MEDS: Pregabalin 50 MG CAPSULE PO SCH ×2 (08:43→21:20)
[2016-05-07] MEDS: Loratadine 10 MG TABLET PO SCH (08:44)
[2016-05-07] MEDS: METHENAMINE HIPPURATE 1 GM PO SCH ×2 (08:46→16:48)
[2016-05-07] MEDS: CRANBERRY PO SCH (08:47)
[2016-05-07] MEDS: ASCORBIC ACID PO SCH (08:47)
[2016-05-07] MEDS: (Dimethyl Fumarate [Tecfidera] 240 MG) PO SCH ×2 (08:58→21:23)
[2016-05-07] MEDS: BuPROPion SR (12 HR) 100 MG TABLET PO SCH ×2 (08:59→21:22)
[2016-05-07] MEDS: Acetaminophen 325 MG TABLET PO PRN (10:06)
--- NOTE | 2016-05-07 14:42 | Discharge Summary ---
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 (3) UTI (urinary tract infection) Priority: Primary Status: Acute Qualifiers: Urinary tract infection type: site unspecified Hematuria presence: without hematuria Qualified Code(s): N39.0 - Urinary tract infection, site not specified (4) Vaginal candidiasis Priority: Primary Status: Suspected (5) Relapsing remitting multiple sclerosis Priority: Secondary Status: Chronic - Discharge Medications Prescriptions: Cephalexin [Keflex] 500 mg PO BID #22 capsule Home Medications: BuPROPion [Wellbutrin] 75 mg PO DAILY 10/08/15 [History] Dimethyl Fumarate [Tecfidera] 240 mg PO BID 10/08/15 [History] Ibuprofen [Motrin] 800 mg PO Q8HR PRN 10/08/15 [History] Sennosides [Senna] 17.2 mg PO DAILY PRN 10/08/15 [History] Venlafaxine HCl [Effexor Xr] 225 mg PO DAILY 10/08/15 [History] Cetirizine HCl [Zyrtec] 10 mg PO DAILY 10/10/15 [History] Baclofen 05/04/16 [History] Bethanechol Chloride [Urecholine] 25 mg PO TID 05/04/16 [History] BuPROPion SR (12 HR) [Wellbutrin SR] 100 mg PO BID 05/04/16 [History] Cranberry Conc/Ascorbic Acid [Cranberry Concentrate Softgel] 1 each PO DAILY [History] Docusate [Colace] 100 mg PO BID 05/04/16 [History] Ergocalciferol (VITAMIN D2) [Vitamin D2] 50,000 unit PO QWEEK 05/04/16 [History] Lactobacillus Acidophilus [Acidophilus Probiotic] 1 mg PO DAILY 05/04/16 [ History] Methenamine Hippurate 1 gm PO BIDWM 05/04/16 [History] Oxymetazoline HCl [Afrin] 1 spray NS Q12H PRN 05/04/16 [History] Saline Nasal [place] [[place] Nasal [place]] 1 spray NS Q4H PRN 05/04/16 [History] Tamsulosin [Flomax] 0.4 mg PO DAILY 05/04/16 [History] Mv-Mn/FA/Vit K/Lycop/Lut/Coq10 [Daily Multivitamin Capsule] 1 each PO DAILY [History] Na Phos,M-B/Na Phos,Di-Ba [Fleet Enema Extra] 230 ml RC BID PRN 05/05/16 [ History] Cephalexin [Keflex] 500 mg PO BID #22 capsule 05/07/16 [Rx] Pregabalin [Lyrica] 100 mg PO BID #20 05/07/16 [Rx] Allergies/Adverse Reactions: Allergies Penicillins Allergy (Verified 05/05/16 10:26) Hives Sulfa (Sulfonamide Antibiotics) Allergy (Verified 05/05/16 10:26) Hives Procedures/tests Complete & Pending: Procedures Performed prior 72 hours Category Date Time Status MR head/brain wo/w con [MR] Routine MRI 05/05/16 13:49 Completed EV venous imaging LE BI Routine Y 05/05/16 03:29 Completed Date of admission: 05/04/16 21:05 Primary care physician: Marcela Mejia Consults: 05/05/16 03:34 Consult to Concrete [employer] [CONS] Routine Reason for SW Consult: Placement PT [Consult to Physical Therapy] [CONS] Routine Comment: Evaluate, develop and implement POC 05/05/16 03:53 Consult to Neurology [CONS] Routine Consulting Provider: [facility] Reason for Consult: Multiple sclerosis exacerbation Call Completed: No OT [Consult to Occupational Therapy] [CONS] Routine Comment: Evaluate, develop and implement POC 05/06/16 11:26 Consult to Occupational Therapy [CONS] Routine Comment: Evaluate, develop and implement POC Consult to Physical Therapy [CONS] Routine Comment: Evaluate, develop and implement POC Consult to Concrete Float Maker [CONS] Routine Reason for SW Consult: discharge planning Discharging clinician: Ayanna Saldaña Anticipated date of discharge: 05/07/16 - Patient Status Disposition: Transfer SNF Condition: Fair Functional capacity at discharge: wheelchair bound Overall status at discharge: patient is progressing back to baseline - Discharge Instructions - Diet and Activity Activity: as per physical therapy Diet: advance to your usual diet, regular diet Hospital course: Ms. Suresh is a 40 year old female with h/o- multiple sclerosis, was admitted with worsening B/L upper and lower extremity weakness. Initial labs showed possible UTI ans her urine dipstick was suggestive of UTI. She was started on empiric IV antibiotics and hydration. She was also noted to have possible vaginal Candidiasis and received a single dose of IV Diflucan with improvement .Neurology was consulted for possible acute flare up of MS. MRI brain was recommended which showed no new MS lesions, and steroids were deferred. PT/OT evaluation was completed and patient would benefit from SNF placement for continued rehabilitation given her weakness and inability to perform independent transfers. Urine culture grew E.coli and she is being discharged on Keflex to complete a 14-day course for complicated UTI. She is medically stable for discharge. - Time Spent with Patient Total time spent providing and/or coordinating discharge services: Greater than 30 minutes (50 min) - Constitutional Vitals: Temp Pulse Resp BP Pulse Ox 97.7 F 100 14 103/65 99 05/07/16 11:02 05/07/16 11:02 05/07/16 11:02 05/07/16 11:02 05/07/16 11:02 General appearance: Present: A&O X 3, answers questions appropriately - Respiratory Respiratory exam: Present: CTAB. Absent: accessory muscle use, rales, rhonchi, wheezes - Cardiovascular Cardiovascular exam: Present: RRR, +S1, +S2. Absent: diastolic murmur, gallop, rubs, systolic murmur
--- NOTE | 2016-05-07 14:45 | Physician Discharge Referral ---
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 (3) UTI (urinary tract infection) Priority: Primary Status: Acute (4) Vaginal candidiasis Priority: Primary Status: Suspected (5) Relapsing remitting multiple sclerosis Priority: Secondary Status: Chronic Expected Duration of Placement: 3 weeks Prognosis: Fair Aware of Diagnosis: Patient Aware of Prognosis: Patient - Transfer Medications Prescriptions: Cephalexin [Keflex] 500 mg PO BID #22 capsule Home Medications: BuPROPion [Wellbutrin] 75 mg PO DAILY 10/08/15 [History] Dimethyl Fumarate [Tecfidera] 240 mg PO BID 10/08/15 [History] Ibuprofen [Motrin] 800 mg PO Q8HR PRN 10/08/15 [History] Sennosides [Senna] 17.2 mg PO DAILY PRN 10/08/15 [History] Venlafaxine HCl [Effexor Xr] 225 mg PO DAILY 10/08/15 [History] Cetirizine HCl [Zyrtec] 10 mg PO DAILY 10/10/15 [History] Baclofen 05/04/16 [History] Bethanechol Chloride [Urecholine] 25 mg PO TID 05/04/16 [History] BuPROPion SR (12 HR) [Wellbutrin SR] 100 mg PO BID 05/04/16 [History] Cranberry Conc/Ascorbic Acid [Cranberry Concentrate Softgel] 1 each PO DAILY [History] Docusate [Colace] 100 mg PO BID 05/04/16 [History] Ergocalciferol (VITAMIN D2) [Vitamin D2] 50,000 unit PO QWEEK 05/04/16 [History] Lactobacillus Acidophilus [Acidophilus Probiotic] 1 mg PO DAILY 05/04/16 [ History] Methenamine Hippurate 1 gm PO BIDWM 05/04/16 [History] Oxymetazoline HCl [Afrin] 1 spray NS Q12H PRN 05/04/16 [History] Saline Nasal [place] [[place] Nasal [place]] 1 spray NS Q4H PRN 05/04/16 [History] Tamsulosin [Flomax] 0.4 mg PO DAILY 05/04/16 [History] Mv-Mn/FA/Vit K/Lycop/Lut/Coq10 [Daily Multivitamin Capsule] 1 each PO DAILY [History] Na Phos,M-B/Na Phos,Di-Ba [Fleet Enema Extra] 230 ml RC BID PRN 05/05/16 [ History] Cephalexin [Keflex] 500 mg PO BID #22 capsule 05/07/16 [Rx] Pregabalin [Lyrica] 100 mg PO BID #20 05/07/16 [Rx] Allergies/Adverse Reactions: Allergies Penicillins Allergy (Verified 05/05/16 10:26) Hives Sulfa (Sulfonamide Antibiotics) Allergy (Verified 05/05/16 10:26) Hives - Respiratory Orders Smoking Cessation: Smoking cessation has been advised. For more information, call the [place] Tobacco Quit Line at 7-870-TCGS-NOW. - Ancillary Orders May use pressure relief devices daily prn - Advance Directives Power of Soldering Machine Operator: Yes () Code Status: Full Code - Mobility Orders Ambulate - Rehabiliation Orders Rehab Potential: Fair Rehab Orders: ROM Exercises, Evaluation for Physical Therapy, Evaluation for Occupational Therapy - Treatments May check for fecal impaction rectally daily PRN, Fleet enema rectally every other day PRN cleansing purposes - Diet Orders Regular CERTIFICATION: I certify that the transfer of the above named patient to an Extended Care Facility is necessary for the continuing treatment of the diagnosis listed. The above information is true and accurate reflection of patient's current condition. Confidential - Redisclosure prohibited without a patient's written consent.
[2016-05-08] MEDS ORDERED: Ibuprofen 800 MG TABLET PO PRN (00:22)
[2016-05-08] MEDS ORDERED: Baclofen 10 MG TABLET PO PRN (00:33)
[2016-05-08] MEDS ORDERED: traMADol 50 MG TABLET PO PRN (00:36)
[2016-05-08] MEDS: Pregabalin 50 MG CAPSULE PO SCH (08:03)
[2016-05-08] MEDS: Lactobacillus 1 EACH CAP.SPRINK PO SCH (08:04)
[2016-05-08] MEDS: BuPROPion SR (12 HR) 100 MG TABLET PO SCH (08:04)
[2016-05-08] MEDS: Loratadine 10 MG TABLET PO SCH (08:04)
[2016-05-08] MEDS: *HR* Heparin 5,000 UNIT/ML VIAL SQ SCH (08:04)
[2016-05-08] MEDS: Venlafaxine XR (24 HR) 75 MG CAP.ER.24H PO SCH (08:04)
[2016-05-08] MEDS: ASCORBIC ACID PO SCH (08:05)
[2016-05-08] MEDS: (Dimethyl Fumarate [Tecfidera] 240 MG) PO SCH (08:05)
[2016-05-08] MEDS: METHENAMINE HIPPURATE 1 GM PO SCH (08:05)
[2016-05-08] MEDS: CRANBERRY PO SCH (08:05)
[2016-05-08 11:18] VITALS: BP 94/56
== END 2016-05-08 15:43 ==
LOC: EMEROO 18:12 → 3BNU 18:12 → SUATTDRO 05-05 03:34
PROVIDERS: ADMIT Hospitalist; ATTEND Internal Medicine